=== PATIENT | male | born 1945 | race Caucasian/White ===

== ENCOUNTER → 2021-04-03 | Outpatient (CLI) | payer MEDICARE, OTHER ==
[~2021-04-03] VITALS: Ht 185.4 cm; Wt 95.3 kg
[~2021-04-03] MED LIST: HYDRALAZINE 2525 MG PO; LISINOPRIL10 MG PO
[2021-04-03 10:42] VITALS: BP 140/69
[2021-04-03 11:02] LABS: HEMOGLOBIN 12.7 gm/dL (14.0-18.0); MCH 32.8 pg (26.0-34.0); MCHC 33.4 g/dL (28.0-37.0); MCV 98.3 fL (80.0-100.0); MPV 7.4 fl. (7.2-11.1); RBC 3.87 mil/uL (4.50-6.00); RDW-CV 14.2 % (10.5-14.5); WBC 4.9 thou/uL (4.0-11.0)
[2021-04-03 11:14] LABS: CALCIUM 8.6 mg/dL (8.5-10.1); CREATININE 1.6 mg/dL (0.6-1.3); POTASSIUM 4.6 mmol/L (3.5-5.1)
[2021-04-03 11:18] LABS: APTT 25.5 Seconds (25.0-31.3); PROTIME 10.4 Seconds (9.20-11.50)
[2021-04-03 12:29] VITALS: BP 135/60
== END | disposition home or self-care (01) ==
LOC: M.INT 09:38
PROVIDERS: ATTEND Radiology Diagnostic Radiology
DX: Z45.2 Encounter for adjustment and management of vascular access device (principal); C07 Malignant neoplasm of parotid gland; I10 Essential (primary) hypertension; Z98.890 Other specified postprocedural states; Z79.899 Other long term (current) drug therapy; Z90.5 Acquired absence of kidney; Z83.3 Family history of diabetes mellitus; Z82.49 Family history of ischemic heart disease and other diseases of the circulatory system